=== PATIENT | female | born 1995 | race Caucasian/White ===

== ENCOUNTER 2017-07-28 10:51 | Observation (INO) ==
--- NOTE | 2017-07-28 11:41 | OB/GYN Progress Note ---
Date of Encounter: 07/28/17 Time of Encounter: 11:33 - Assessment and Plan (1) Headache above the eye region Current Visit: Yes Status: Acute Pt feels ECKERT is related to sinus congestion/ allergies. SHe also has clear nasal mucus. She denies any other PIH related complaints. Labs pending. BP normal. Good FM. (2) 39 weeks gestation of Current Visit: Yes Status: Acute NST reactive. Subjective - Subjective Interval history: 22 year-old presenting at 39w2d from office for PIH evaluation due to pt c/o headache for last 3 days. Pt denies blurry vision or RUQ abdominal pain. She reports good FM. No other complaints. Antepartum ROS: movement normal, no loss of fluid, no vaginal bleeding, no contractions Objective - Vital Signs Vital Signs: Intake and Output 07/27/17 07/28/17 07/28/17 23:59 07:59 15:59 Other: Weight 89.7 kg Patient Weight 07/28/17 23:59 Weight 89.7 kg - Exam FHR: category 1 FHR comments: 125 BPM reactive NST Abdomen: Present: soft, gravid Uterus: Absent: tenderness
[2017-07-28 12:19] LABS: Basophils % 0.4 %; Eosinophils # 0.1 K/mcL (0.0-0.6); Eosinophils % 0.5 %; Immature Granulocytes % 0.9 % (0-4); Lymphocytes % 17.8 %; Mean Corpuscular HGB Conc 33.3 g/dL (31.6-35.5); Mean Platelet Volume 10.8 fL (9.4-12.4); Monocytes # 0.9 K/mcL (0.0-1.3); Neutrophils # 8.2 K/mcL (1.6-8.9); Platelet Count 340 K/mcL (140-400); Red Blood Count 4.14 M/mcL (3.82-4.97); Red Cell Distribution Width 13.5 % (11.5-14.5); Segmented Neutrophils % 72.4 %
[2017-07-28 12:37] LABS: Alanine Aminotransferase 6 Units/L (7-52); Aspartate Amino Transferase 12 Units/L (13-39); BUN/Creatinine Ratio 13 (6-26); Blood Urea Nitrogen 5 mg/dL (6-20); Lactate Dehydrogenase 107 Units/L (140-271); eGFR For African Americans > 60 (> 60); eGFR For Non-African Americans > 60 (> 60)
[2017-07-28 13:07] LABS: Amphetamine Screen,Urine Negative ng/mL (Cutoff=1000); Barbiturate Screen,Urine Negative ng/mL (Cutoff=200); Benzodiazepines Screen,Urine Negative ng/mL (Cutoff=200); Cannabinoid Screen,Urine Negative ng/mL (Cutoff = 50); Cocaine Screen,Urine Negative ng/mL (Cutoff= 300); Opiate Screen,Urine Negative ng/mL (Cutoff=300); Phencyclidine Screen,Urine Negative ng/mL (Cutoff=25)
[2017-07-28 13:45] LABS: Creatinine,Urine 219 mg/dL; Protein/Creatinine Ratio,Urine 0.15 mg/mg (0.00-0.20)
== END 2017-07-28 13:00 | disposition home or self-care (01) ==
LOC: 1NENULAB
PROVIDERS: ADMIT Registered Nurse; ATTEND Registered Nurse

== ENCOUNTER 2017-08-02 08:00 | Inpatient (IN) ==
[2017-08-04] MEDS ORDERED: Ondansetron 4 MG/2 ML VIAL IVP PRN (06:25)
[2017-08-04] MEDS ORDERED: Metoclopramide 10 MG/2 ML VIAL IVP PRN (06:25)
[2017-08-04] MEDS ORDERED: Naloxone 0.4 MG/ML INJ IVP PRN (06:25)
[2017-08-04] MEDS ORDERED: Famotidine 20 MG/2 ML VIAL IVP PRN (06:25)
--- NOTE | 2017-08-04 06:33 | OB/GYN History & Physical ---
Date of Encounter: 08/04/17 Time of Encounter: 06:20 Assessment and Plan (1) 40 weeks gestation of Current visit: Yes Status: Acute Admitted for induction of labor Pitocin CBC UDS Routine labor management Patient may have nubain/epidural upon request Consider AROM for augmentation Anticipate vaginal delivery POC per consult with Dr Olvera. (2) NST (non-stress test) reactive on surveillance Current visit: Yes Status: Acute Baseline 135 bpm Moderate variability Positive accelerations/ negative decelerations FHT reassuring Continue to monitor History of Present Illness Chief complaint: Induction of labor HPI: Ms. Brink is a 22 year old female 001 at 40 weeks and 2 days presents to L&D for induction of labor. Patient receives care with midwives. She admits to good movements, contractions every 4-5 minutes, denies vaginal bleeding, leaking of fluid. She denies headaches, vision disturbances, chest pain, shortness of breath, epigastric pain, dysuria. She admits to diarrhea secondary to nervousness. Has no further acute complaints or concerns. Patient's has been complicated by insufficient weight gain during , headaches, history of juvenile idiopathic scoliosis of thoracic region. Blood type: B+ GBS: negative Varicella IgG: positive Rubella IgG: positive T Pallidum: negative HIV Antibody: nonreactive Hepatitis B antigen: nonreactive Past Med Surg Social Fam HX - Past Medical History Medical history: no medical history Psychiatric history: no psych history - Past Surgical History Surgical History: no surgical history - Social History Smoking Status: Current every day smoker Packs per day: 4 Smokeless Tobacco Status: No Alcohol use: none Drug use: none - Family History Mother Adopted: No Family Member Ethnicity: Non- Living Status: Still Living Hx Family Cardiac Disorders: No Hx Family Respiratory Disorders: No Hx Family Cancer: No Hx Family GI Disorders: No Hx Family Genitourinary Disorders: No Hx Family Endocrine Disorder: Yes Hx Family Musculoskeletal Disorders: No Hx Family Neuromuscular Disorders: No Hx Family Neurologic Disorders: No Hx Family HEENT Disorders: No Hx Family Autoimmune Disorders: No Hx Family Reproductive Disorders: No Hx Family Psychosocial Disorders: No Hx Family Medical Disorders: No Obstetrical History - Pregnancies : 2 Para: 1 Term: 1 : 0 Ab's: 0 Livin Medications and Allergies Multivitamin [Flintstones] 1 each PO DAILY 07/28/17 [History] 3 Allergy/AdvReac Type Severity Reaction Status Date / Time No Known Allergies Allergy Verified 11/29/16 06:17 Review of System OB All systems PM: reviewed and no additional remarkable complaints except as stated - Constitutional Constitutional ROS IM: as per HPI - Cardiovascular Cardiovascular: as per HPI - Respiratory Respiratory: as per HPI - Gastrointestinal Gastrointestinal: as per HPI - Genitourinary Genitourinary: as per HPI - Neurological Nerological: no headache(s), no tingling Exam - Constitutional Constitutional: well developed, well nourished, no acute distress, average body habitus - HEENT HEENT: Normocephaly, Mucus Membranes Moist - Neck Neck exam: full ROM - Lungs Respiratory exam: CTAB - Cardiovascular Cardiovascular exam: RRR, +S1, +S2 - Abdomen Abdomen: Present: bowel sounds normal - Extremities Extremities exam: full ROM Deep Tendon Reflex Grade: 2+ Normal - Uterus Uterus exam: Present: normal size (soft, nontender), normal contour Results Result Diagrams: 08/04/17 07:01 All other labs normal. - Attending Attestation I examined this patient and my medical decision-making was reviewed with the Resident Physician. I agree with the documented findings, disposition and treatment plan as described. Tad Michelle CNM
[2017-08-04] MEDS ORDERED: Oxytocin 20 units/ LR 1000 mL 20 UNIT/1,000 ML BAG IVC SCH ×2 (07:15→20:25)
[2017-08-04] MEDS: Ringers Solution, Lactated 1,000 ML IVC SCH ×3 (07:48→12:50)
[2017-08-04 07:50] LABS: Amphetamine Screen,Urine Negative ng/mL (Cutoff=1000); Barbiturate Screen,Urine Negative ng/mL (Cutoff=200); Benzodiazepines Screen,Urine Negative ng/mL (Cutoff=200); Cannabinoid Screen,Urine Negative ng/mL (Cutoff = 50); Cocaine Screen,Urine Negative ng/mL (Cutoff= 300); Opiate Screen,Urine Negative ng/mL (Cutoff=300); Phencyclidine Screen,Urine Negative ng/mL (Cutoff=25)
[2017-08-04 10:46] LABS: Basophils % 0.2 %; Eosinophils # 0.1 K/mcL (0.0-0.6); Eosinophils % 0.6 %; Hematocrit 38.1 % (35.3-44.9); Hemoglobin 12.7 g/dL (11.5-15.4); Immature Granulocytes % 1.2 % (0-4); Lymphocytes # 3.3 K/mcL (0.6-4.6); Lymphocytes % 22.6 %; Mean Corpuscular HGB Conc 33.3 g/dL (31.6-35.5); Mean Corpuscular Hemoglobin 29.1 pg (28.0-33.3); Mean Corpuscular Volume 87.2 fL (83.0-100.0); Mean Platelet Volume 11.5 fL (9.4-12.4); Monocytes # 0.6 K/mcL (0.0-1.3); Monocytes % 4.3 %; Neutrophils # 10.3 K/mcL (1.6-8.9); Nucleated Red Blood Cells 0.1 /100 WBC (0); Platelet Count 387 K/mcL (140-400); Red Blood Count 4.37 M/mcL (3.82-4.97); Red Cell Distribution Width 13.4 % (11.5-14.5); Segmented Neutrophils % 71.1 %
[2017-08-04] MEDS ORDERED: Bupivacaine-MPF 0.25% 10 ML VIAL EP ONE (11:37)
[2017-08-04] MEDS ORDERED: *HR* FentaNYL (PF) 100 MCG/2 ML VIAL EP ONE (11:37)
[2017-08-04] MEDS ORDERED: Epidural Premix (fent/bupiv) 110 ML EP SCH (11:45)
[2017-08-04] MEDS ORDERED: Bupivacaine-MPF 0.25% 10 ML VIAL ONE (11:56)
[2017-08-04] MEDS ORDERED: *HR* FentaNYL (PF) 100 MCG/2 ML VIAL ONE (11:56)
[2017-08-04] MEDS ORDERED: Epidural Premix (fent/bupiv) 110 ML EP ONE ×2 (11:59→17:55)
[2017-08-04] MEDS ORDERED: *HR* Phenylephrine 10 MG/ML VIAL ONE (12:41)
--- NOTE | 2017-08-04 12:49 | Anesthesia Evaluation PreOp ---
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) Other Medical History: Denies Any Significant HX Anesthesia History: No Prior Anesthetic Complications (never had any procedure requiring GA; denies family h/o GA complications), Problems (previous DOROTHY x1; per patient, it took 5-[address] epidural) : Yes Test: Positive Alcohol Use: none Drug use: none Medications and Allergies Multivitamin [Flintstones] 1 each PO DAILY 07/28/17 [History] 3 Allergy/AdvReac Type Severity Reaction Status Date / Time No Known Allergies Allergy Verified 11/29/16 06:17 - Meds/Allergy Pre-op Review Medications Reviewed: Yes Allergies Reviewed: Yes Beta Blockers on Current Med List: No Anesthesia Results - Labs 08/04/17 07:01 Anesthesia Exam 115/73, HR 105, RR 16 Height: 1.68m Weight: 90kg NPO (# of Hours): solids > 7 hrs Pain Scale: 0 (patient wants epidural before they break her water) Pain Scale Used: Numeric (1 - 10) - HEENT Pupil (Motor): Pupils equal Mallampati: II Teeth: Normal Oral Opening: Greater than 3 - 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
--- NOTE | 2017-08-04 12:56 | Anesthesia Procedures ---
Date of Encounter: 08/04/17 Time of Encounter: 12:54 Procedures: Anesthesia - Epidural/Spinal Patient ID/Chart reviewed: Yes Patient examined: Yes OB Eval: Gestational age: 40 weeks 2 days OB Eval: : 2 OB Eval: Hx Para: 1 OB Eval: Dilated at (cm): 3 OB Eval: Contractions: Non-stressed pattern Consent Obtained: Yes Supplemental Oxygen: None/Room Air Site Prep: Aseptic Technique, Sterile prep and drape, Povidone-Iodine 1% Patient position: upright Local Anesthetic: Lidocaine 1% Amount of Local Anesthetic used: 3 Touhy Needle Gauge: 18 Touhy Needle Depth (cm): 7 Catheter Depth at Skin (cm): 12 Test Dose (1.5% Lido + Epi): Volume given (mls): 5 Test Dose Result: Negative Loading Dose: 0.25% Marcaine (mls): 3 Loading Dose: Fentanyl (mcg): 100 Loading Dose Administered: Thru Catheter Infusion Med: 0.125% Bupivacaine w/ 2 mcg/ml Fentanyl Infusion Rate (mls/hr): [address]: Tegaderm, Tape Interspace Used: L3-L4 Loss of Resistance (JUAN MANUEL): Yes Blood: No CSF: No Paresthesia: No Procedure: successful on 2nd attempt; 1st attempt resulted in inadvertent placement of epidural catheter in blood vessel Vitals + FHT's: please see Chela HERNÁNDEZ's electronic records for VS entry
--- NOTE | 2017-08-04 13:20 | OB Labor Progress Note ---
Date of Encounter: 08/04/17 Time of Encounter: 13:17 Labor Progress Note - Subjective Subjective: Patient resting comfortably in bed after epidural placement - Vital Signs Vital Signs: VSS - Cervix Cervix: 4/80/-2 - Heart Tones Heart Tones: 140-150 moderate variability category II tracing. Occasional variable decel. - Luck Luck: Contractions every 1 - 3minutes - Interventions Interventions: vaginal exam, attempted to rupture membranes unsuccessfully, stripped membranes - Plan Plan: COntinue routine labor management GBS negative Pitocin titrate until adequate labor pattern Consider AROM and IUPC placement Anticipate vaginal delivery POC per consult with Dr Olvera.
--- NOTE | 2017-08-04 16:57 | OB Labor Progress Note ---
Date of Encounter: 08/04/17 Time of Encounter: 16:55 Labor Progress Note - Subjective Subjective: Patient doing well with epidural; states she is starting to feel a little more with each contraction. - Vital Signs Vital Signs: VSS - Cervix Cervix: 4-5/80/-2 - Heart Tones Heart Tones: category I tracing 130 - [place]: Contractions every 2-3 minutes. - Interventions Interventions: AROM for small amount of clear fluid and IUPC placed without difficulty - Plan Plan: Continue routine labor management GBS negative Continue titrating pitocin Encouraged frequent position changes Anticipate vaginal delivery POC per consult with Dr Olvera.
--- NOTE | 2017-08-04 20:16 | OB/GYN Procedure Note ---
Delivery - Delivery Date: 08/04/17 Provider: Carmen Michelle Intrapartum events: none Delivery induction: oxytocin Delivery augmentation: rupture of membranes Delivery monitor: external FHT, internal uterine Anesthesia: epidural Estimated Blood Loss: 350 - (s) Infant A Delivery Date: 08/04/17 Infant Delivery Time: 19:37 Presentation: vertex Position: DANIELA Route of delivery: Gender: Female Viability: Viable Pounds: 8 Ounces: 0 Weight Gram: 3625 kg at 1 minute: 8 at 5 mins: 8 Shoulder Dystocia: not encountered Specimens collected: venous cord gases, arterial cord gases Placenta: spontaneous, uterine exploration, other (retained membranes) Cord: nuchal cord, 3 umbilical vessels, delivered through nuchal - Repair Episiotomy: none Laceration Description: None - Complications Delivery complications: none, other (Trailing, retained membranes) Delivery comments: Patient progressed to complete. Began coached pushing to viable, vigorous female infant in the DANIELA position over an intact perineum. Loose nuchal cord x 1 delivered through. No shoulder dystocia, and no meconium encountered. Cord double clamped and cut. Apgars 8 and 8 at one and five minutes of age. taken to prewarmed radiant warmer for suctioning by nursing staff. Placenta delivered spontaneously ([place]) with trailing membranes. Membranes retained, Dr Olvera called to the room to sweep uterine cavity. Placenta disk appears grossly intact with marginal cord insertion. Perineum intact. EBL 350mL. Dr Olvera notified of delivery. Mother stable in recovery. Infant taken to special care nursery. - Disposition Mom disposition: stable in LDR [place] disposition: taken to nursery - Comments Comments: Requested to attend delivery after placenta had been delivered. Trailing membranes were noted and were unable to be removed. There was no aggressive bleeding at the time. With inspection there were membranes approximately 6 inches from the cervix through the vagina and out at the introitus. With sterile gloves on the uterine cavity was palpated and a few clots removed along with confirmation that there were no retained placental remnants. The membranes were then grasped with a ring forcep and gently removed. Repeat intrauterine palpation again revealed no clots, no retained placental remnants and no further membranes appreciated.
[2017-08-04] MEDS ORDERED: Measles/Mumps/Rubella Vacc 0.5 ML VIAL SQ PRN (20:25)
[2017-08-04] MEDS ORDERED: Acetaminophen 325 MG TABLET PO PRN (20:25)
[2017-08-04] MEDS ORDERED: Benzocaine/Menthol 56 GM AEROSOL SPRAY TP PRN (20:46)
[2017-08-04] MEDS: CeFAZolin Premix DUPLEX 2,000 MG/50 ML BAG IVPB SCH (23:49)
[2017-08-05] MEDS: Ibuprofen 600 MG TABLET PO SCH ×4 (00:39→21:40)
[2017-08-05 04:59] LABS: Basophils % 0.2 %; Eosinophils % 0.2 %; Hematocrit 29.6 % (35.3-44.9); Immature Granulocytes % 0.6 % (0-4); Lymphocytes # 4.2 K/mcL (0.6-4.6); Lymphocytes % 21.7 %; Mean Corpuscular HGB Conc 33.4 g/dL (31.6-35.5); Mean Corpuscular Hemoglobin 28.9 pg (28.0-33.3); Mean Corpuscular Volume 86.3 fL (83.0-100.0); Mean Platelet Volume 10.8 fL (9.4-12.4); Monocytes % 5.1 %; Neutrophils # 13.9 K/mcL (1.6-8.9); Platelet Count 320 K/mcL (140-400); Red Blood Count 3.43 M/mcL (3.82-4.97); Red Cell Distribution Width 13.6 % (11.5-14.5); Segmented Neutrophils % 72.2 %
[2017-08-05 05:09] LABS: Hemoglobin 9.9 g/dL (11.5-15.4)
--- NOTE | 2017-08-05 08:20 | OB/GYN Progress Note ---
Date of Encounter: 08/05/17 Time of Encounter: 08:18 - Assessment and Plan (1) Vaginal delivery Current Visit: Yes Status: Acute Stable PPD #1 Continue current management Discharge tomorrow. (2) anemia Current Visit: Yes Status: Acute Will continue on iron Subjective - Subjective Interval history: Pain well managed on po pain medication, tolerates regular diet, bottle feeding. Patient reports: appetite normal, voiding normally, pain well controlled, ambulating normally [place]: doing well, bottle feeding Objective - Latest Vital Signs Latest vital signs: Vital Signs Temp Pulse Resp BP Pulse Ox 08/05/17 08:07 97.6 F 86 16 120/77 99 08/05/17 00:30 98.5 F 89 14 115/73 98 08/04/17 23:30 98.2 F 90 16 115/71 99 08/04/17 22:30 97.9 F 106 16 119/79 98 Intake and Output 08/04/17 08/05/17 08/05/17 23:59 07:59 15:59 Intake Total 50 / 50 Output Total 750 / 750 400 / 400 Balance -750 / -750 -350 / -350 Intake: IV Fluids 50 / 50 Ancef Premix DUPLEX 2,000 mg In 50 / 50 50 ml @ 100 mls/hr IVPB Q8H [facility] Rx#:[id number] Output: Urine 400 / 400 Estimated Blood Loss 350 / 350 Catheter 400 / 400 Other: Weight 189.7 kg - Exam Lungs: bilateral: normal Chest: Normal S1, Normal S2 Extremities: Present: normal Abdomen: Present: normal appearance, soft Uterus: Present: normal, firm Uterus Position: At Umbilicus - Labs Labs: Laboratory Results - last 24 hr 08/04/17 08/05/17 07:01 04:21 WBC 14.5 H 19.3 H RBC 4.37 3.43 L Hgb 12.7 9.9 L D Hct 38.1 29.6 L MCV 87.2 86.3 MCH 29.1 28.9 MCHC 33.3 33.4 RDW 13.4 13.6 Plt Count 387 320 MPV 11.5 10.8 Immature Gran % 1.2 0.6 Seg Neutrophils % 71.1 72.2 Lymphocytes % 22.6 21.7 Monocytes % 4.3 5.1 Eosinophils % 0.6 0.2 Basophils % 0.2 0.2 Neutrophils # 10.3 H 13.9 H Lymphocytes # 3.3 4.2 Monocytes # 0.6 1.0 Eosinophils # 0.1 0.0 Basophils # 0.0 0.0 Nucleated RBCs/100 WBC 0.1 H
[2017-08-05] MEDS: CeFAZolin Premix DUPLEX 2,000 MG/50 ML BAG IVPB SCH ×2 (10:34→15:49)
[2017-08-05] MEDS: Prenatal Vit/FA 1 EACH TABLET PO SCH (15:58)
[2017-08-06] MEDS: CeFAZolin Premix DUPLEX 2,000 MG/50 ML BAG IVPB SCH (00:05)
[2017-08-06] MEDS: Ibuprofen 600 MG TABLET PO SCH ×2 (03:35→11:35)
[2017-08-06] MEDS: Prenatal Vit/FA 1 EACH TABLET PO SCH (08:55)
[2017-08-06 09:03] VITALS: BP 114/74
--- NOTE | 2017-08-06 10:47 | Discharge Summary ---
Date of Encounter: 08/06/17 Time of Encounter: 10:44 - Discharge Diagnosis (1) anemia Priority: Secondary Status: Acute Comments: Continue iron supplementation BID (2) Vaginal delivery Priority: Primary Status: Acute Comments: PPD no.2 Pt reports good pain relief with PO medications Tolerating regular diet Voiding independently Has had BM Lochia light Ready for discharge home today - Discharge Medications Prescriptions: Ibuprofen [Motrin] 600 mg PO Q6HR #30 tablet Docusate [Colace] 100 mg PO BID #120 capsule Ferrous Sulfate 325 mg PO BID #120 tablet Home Medications: Multivitamin [Flintstones] 1 each PO DAILY 07/28/17 [History] Acetaminophen [Tylenol] 650 mg PO Q6HR PRN tablet 08/06/17 [Rx] Benzocaine/Menthol [place] [Dermoplast [place]] 1 appl TP QID PRN aerosol 08/06/17 [Rx] Docusate [Colace] 100 mg PO BID #120 capsule 08/06/17 [Rx] Ferrous Sulfate 325 mg PO BID #120 tablet 08/06/17 [Rx] Ibuprofen [Motrin] 600 mg PO Q6HR #30 tablet 08/06/17 [Rx] Allergies/Adverse Reactions: 3 Allergy/AdvReac Type Severity Reaction Status Date / Time No Known Allergies Allergy Verified 11/29/16 06:17 Data Procedures and tests throughout hospitalization: Laboratory Tests 08/04/17 08/04/1718 07:01 07:06 04:21 WBC 14.5 H 19.3 H RBC 4.37 3.43 L Hgb 12.7 9.9 L D Hct 38.1 29.6 L MCV 87.2 86.3 MCH 29.1 28.9 MCHC 33.3 33.4 RDW 13.4 13.6 Plt Count 387 320 MPV 11.5 10.8 Immature Gran % 1.2 0.6 Seg Neutrophils % 71.1 72.2 Lymphocytes % 22.6 21.7 Monocytes % 4.3 5.1 Eosinophils % 0.6 0.2 Basophils % 0.2 0.2 Neutrophils # 10.3 H 13.9 H Lymphocytes # 3.3 4.2 Monocytes # 0.6 1.0 Eosinophils # 0.1 0.0 Basophils # 0.0 0.0 Nucleated RBCs/100 WBC 0.1 H Urine Opiates Screen Negative Ur Barbiturates Screen Negative Ur Phencyclidine Scrn Negative Ur Amphetamines Screen Negative U Benzodiazepines Scrn Negative Urine Cocaine Screen Negative U Marijuana (THC) Screen Negative Date of admission: 08/04/17 06:03 Primary care physician: Oxana Marquez CNP Consults: 08/04/17 20:25 Consult to Telecom Assistant [CONS] Routine Comment: Vaginal delivery, consult needed Discharging clinician: Carmen Gage Anticipated date of discharge: 08/06/17 - Patient Status Disposition: Home, Self-Care Condition: Good Functional capacity at discharge: independent ambulation Overall status at discharge: patient is progressing back to baseline - Discharge Instructions Follow Up With: Oxana Marquez CNP [Primary Care Provider] - Carmen Gage [Advanced Practice Nurse] - - Diet and Activity Activity: increase activity as tolerated Diet: regular diet Hospital Course Reason for admission: induction of labor, IUP at term Delivery: Episiotomy: none Laceration: 2nd degree Other procedures: none complications: none Discharge diagnosis: IUP at term delivered [place] baby: female Time Attestation: Total time spent providing and/or coordinating discharge services: Time Spent: Less than 30 minutes Exam - Constitutional Vitals: Temp Pulse Resp BP Pulse Ox 97.6 F 82 16 114/74 99 08/06/17 08:50 08/06/17 08:50 08/06/17 08:50 08/06/17 08:50 08/06/17 08:50 General appearance IM: A&O X 3 - Respiratory Respiratory exam: Present: CTAB - Cardiovascular Cardiovascular exam IM: Present: RRR, +S1, +S2 - GI/Abdominal GI/Abdominal exam IM: normal bowel sounds - Rectal Rectal exam: deferred - Uterine Tone: Firm Uterus Position: At Umbilicus, Midline - Extremities Exam Extremities exam IM: Present: radial pulses palpable and symmetrical - Neurological Exam Neurological exam: alert, oriented X3 - Psychiatric Additional comments: Pt reports feeling well today. Denies history of PPD. S/sx of PPD discussed with pt
== END 2017-08-06 16:30 | disposition home or self-care (01) | DRG 541 ==
LOC: 1NENULAB 08-04 06:03 → 1NENUOBS 08-04 22:37
PROVIDERS: ADMIT Advanced Practice Midwife; ATTEND Advanced Practice Midwife

== ENCOUNTER 2020-11-02 03:53 | Inpatient (IN) ==
[2020-11-02] MEDS ORDERED: *HR* Nalbuphine 10 MG/ML AMPUL IV PRN (04:07)
[2020-11-02] MEDS ORDERED: Lidocaine 1% 20 ML MDV INFILT PRN (04:07)
[2020-11-02] MEDS ORDERED: Azithromycin 500 MG in 0.9 % Sodium Chloride 250 ML IVPB PRN ×2 (04:07→04:09)
[2020-11-02] MEDS ORDERED: Metoclopramide 10 MG/2 ML VIAL IVP PRN ×2 (04:07→04:09)
[2020-11-02] MEDS ORDERED: Naloxone 0.4 MG/ML INJ IVP PRN ×2 (04:07→04:09)
[2020-11-02] MEDS ORDERED: Famotidine 20 MG/2 ML VIAL IVP PRN ×2 (04:07→04:09)
[2020-11-02] MEDS ORDERED: Ondansetron 4 MG/2 ML VIAL IVP PRN ×2 (04:07→04:09)
[2020-11-02] MEDS ORDERED: miSOPROStoL 25 MCG TABLET VG PRN (04:07)
[2020-11-02] MEDS ORDERED: Penicillin G Potassium 5,000,000 UNIT in 0.9 % Sodium Chloride Mini Bag 100 ML IVPB ONE ×2 (04:11→04:15)
[2020-11-02] MEDS ORDERED: Ringers Solution, Lactated 1,000 ML IVC SCH (04:15)
[2020-11-02] MEDS ORDERED: Oxytocin 20 units/ LR 1000 mL 20 UNIT/1,000 ML BAG IVC SCH ×2 (04:15→18:10)
[2020-11-02] MEDS: Ringers Solution, Lactated 1,000 ML IVC SCH ×3 (04:30→12:52)
[2020-11-02 05:28] LABS: Basophils # 0.1 K/mcL (0.0-0.2); Basophils % 0.3 %; Eosinophils # 0.1 K/mcL (0.0-0.6); Eosinophils % 0.5 %; Hematocrit 37.2 % (35.3-44.9); Hemoglobin 12.4 g/dL (11.5-15.4); Immature Granulocytes % 1.1 % (0-4); Lymphocytes # 3.1 K/mcL (0.6-4.6); Lymphocytes % 18.9 %; Mean Corpuscular HGB Conc 33.3 g/dL (31.6-35.5); Mean Corpuscular Volume 89.9 fL (83.0-100.0); Mean Platelet Volume 10.5 fL (9.4-12.4); Monocytes # 0.8 K/mcL (0.0-1.3); Neutrophils # 12.3 K/mcL (1.6-8.9); Platelet Count 323 K/mcL (140-400); Red Blood Count 4.14 M/mcL (3.82-4.97); Red Cell Distribution Width 13.3 % (11.5-14.5); Segmented Neutrophils % 74.2 %; White Blood Count 16.6 K/mcL (4.3-11.1)
[2020-11-02 05:37] LABS: Amphetamine Screen,Urine Negative ng/mL (Cutoff=1000); Barbiturate Screen,Urine Negative ng/mL (Cutoff=200); Benzodiazepines Screen,Urine Negative ng/mL (Cutoff=200); Cannabinoid Screen,Urine Negative ng/mL (Cutoff = 50); Cocaine Screen,Urine Negative ng/mL (Cutoff= 300); Opiate Screen,Urine Negative ng/mL (Cutoff=300); Phencyclidine Screen,Urine Negative ng/mL (Cutoff=25)
[2020-11-02] MEDS ORDERED: EPHEDrine 50 MG/ML VIAL IVP PRN (07:32)
[2020-11-02] MEDS ORDERED: *HR* FentaNYL (PF) 100 MCG/2 ML VIAL EP ONE (07:32)
[2020-11-02] MEDS ORDERED: Ropivacaine/PF 0.2% 20 ML VIAL EP ONE (07:32)
[2020-11-02] MEDS ORDERED: *HR* FentaNYL (PF) 250 MCG/5 ML VIAL ONE (07:34)
[2020-11-02] MEDS ORDERED: Epidural Premix (fent/bupiv) 110 ML EP ONE (07:36)
[2020-11-02] MEDS ORDERED: Penicillin G Potassium 2,500,000 UNIT/105 ML MLS IVPB SCH (08:00)
[2020-11-02] MEDS: Epidural Premix (fent/bupiv) 110 ML EP SCH ×2 (08:02→14:38)
[2020-11-02] MEDS: Penicillin G Potassium 2,500,000 UNIT/105 ML MLS IVPB SCH ×2 (08:35→12:51)
[2020-11-02] MEDS ORDERED: EPHEDrine 50 MG/ML VIAL ONE (13:18)
[2020-11-02] MEDS ORDERED: *HR* FentaNYL (PF) 100 MCG/2 ML VIAL ONE (16:53)
[2020-11-02] MEDS ORDERED: Benzocaine/Menthol 56 GM AEROSOL SPRAY TP PRN (18:10)
[2020-11-02] MEDS ORDERED: Acetaminophen 325 MG TABLET PO PRN (18:10)
[2020-11-02] MEDS ORDERED: Lanolin 7 G OINT...G. TP PRN (18:10)
[2020-11-03 05:10] LABS: Basophils % 0.3 %; Eosinophils # 0.1 K/mcL (0.0-0.6); Eosinophils % 0.4 %; Hematocrit 31.6 % (35.3-44.9); Hemoglobin 10.9 g/dL (11.5-15.4); Immature Granulocytes % 0.5 % (0-4); Lymphocytes # 3.1 K/mcL (0.6-4.6); Lymphocytes % 20.9 %; Mean Corpuscular HGB Conc 34.5 g/dL (31.6-35.5); Mean Corpuscular Hemoglobin 30.9 pg (28.0-33.3); Mean Corpuscular Volume 89.5 fL (83.0-100.0); Mean Platelet Volume 10.6 fL (9.4-12.4); Monocytes # 0.8 K/mcL (0.0-1.3); Monocytes % 5.7 %; Neutrophils # 10.6 K/mcL (1.6-8.9); Platelet Count 278 K/mcL (140-400); Red Blood Count 3.53 M/mcL (3.82-4.97); Red Cell Distribution Width 13.2 % (11.5-14.5); Segmented Neutrophils % 72.2 %; White Blood Count 14.7 K/mcL (4.3-11.1)
[2020-11-03] MEDS: Ibuprofen 600 MG TABLET PO PRN ×2 (08:38→14:57)
[2020-11-03] MEDS ORDERED: Prenatal Vit/FA 1 EACH TABLET PO SCH (09:00)
[2020-11-03 15:31] VITALS: BP 112/74
== END 2020-11-03 18:11 | disposition home or self-care (01) | DRG 560 ==
LOC: 1NENULAB 03:53 → 1NENUOBS 20:42
PROVIDERS: ADMIT Obstetrics & Gynecology; ATTEND Obstetrics & Gynecology